=== PATIENT | male | born 1960 | race Asian ===

== ENCOUNTER 2016-07-30 13:04 | Emergency (ER) | payer MEDICAID, OTHER ==
[~2016-07-30] VITALS: Ht 172.7 cm; Wt 63.5 kg
[2016-07-30 13:51] LABS: INR 0.93 (0.9-1.15); Partial Thromboplastin Time 23.6 sec (22.64-33.71)
[2016-07-30] MEDS ORDERED: ETOMIDATE (2MG/ML) 20ML VIAL IV ONE ×2 (14:04→14:15)
[2016-07-30 14:05] LABS: Albumin 4.1 g/dL (3.4-5.0); Alkaline Phosphatase 121 U/L (45-117); Anion Gap 12 (5-15); Aspartate Aminotransferase 20 U/L (15-37); BUN/Creatinine Ratio 14.1; Bilirubin, Total 0.5 mg/dL (0.2-1.0); Blood Urea Nitrogen 20 mg/dL (7-18); Calcium 9.1 mg/dL (8.5-10.1); Carbon Dioxide 26 mmol/L (21-32); Chloride 101 mmol/L (98-107); GFR African American 67 mL/min; GFR Non-African American 55 mL/min; Glucose 330 mg/dL (74-106); Magnesium 2.5 mg/dL (1.6-2.6); Potassium 3.4 mmol/L (3.5-5.1); Sodium 139 mmol/L (136-145); Total Protein 8.7 g/dL (6.4-8.2)
[2016-07-30] MEDS ORDERED: PROPOFOL 100 ML IV ONE (14:07)
[2016-07-30] MEDS ORDERED: SUCCINYLCHOLINE CHLORIDE 20 MG/ML 10ML VIAL IV ONE (14:15)
[2016-07-30] MEDS ORDERED: NICARDIPINE 25MG/250ML BAG KIT 250 ML IV SCH (14:15)
[2016-07-30] MEDS ORDERED: PROPOFOL 10 MG/ML 20 ML IV ONE (14:30)
[2016-07-30 14:52] VITALS: BP 195/93
[2016-07-30] MEDS ORDERED: PROPOFOL 100 ML IV SCH (14:52)
[2016-07-30] MEDS ORDERED: MANNITOL 20% SOLN 100 gm/500ml 250 ML IV ONE (15:30)
[2016-07-30 16:09] LABS: Basophils # (auto) 0.1 uL; Basophils % (auto) 0.6 % (0.0-2.0); Eosinophils # (auto) 0.3 uL; Eosinophils % (auto) 2.7 % (0.0-7.0); Hematocrit 50.7 % (41.0-53.0); Lymphocytes # (auto) 3.7 uL; Lymphocytes % (auto) 35.1 % (10.0-50.0); Mean Corpuscular Hemoglobin 29.3 pg (28.0-32.0); Mean Corpuscular Hgb Conc. 33.5 g/dL (32.0-36.0); Mean Corpuscular Volume 87.6 fL (80.0-100.0); Mean Platelet Volume 10.5 fL (7.4-10.4); Monocytes # (auto) 0.7 uL; Monocytes % (auto) 6.9 % (0.0-12.0); Neutrophils # (auto) 5.7 uL; Neutrophils % (auto) 54.7 % (37.0-80.0); Platelet Count (auto) 271 10^3/uL (140-450); Red Cell Distribution Width 13.1 % (11.6-16.0); White Blood Cell 10.5 10^3/uL (4.4-10.8)
== END 2016-07-30 15:53 | disposition home or self-care (01) ==
LOC: ER 13:04
DX: R41.82 Altered mental status, unspecified (principal); I62.9 Nontraumatic intracranial hemorrhage, unspecified; I16.9 Hypertensive crisis, unspecified; Z88.8 Allergy status to other drugs, medicaments and biological substances
CPT/HCPCS: 31500; 36415; 36600; 51702; 70450; 71010; 80053; 80320; 82805; 82962; 83735; 84484; 85025; 85610; 85730; 94002; 96365; 96368; 99291; J0330; J2704